=== PATIENT | female | born 1940 | race Caucasian/White ===

== ENCOUNTER 2023-08-30 13:44 | Emergency (ER) | payer OTHER ==
[~2023-08-30] VITALS: Ht 149.9 cm; Wt 61.9 kg
[2023-08-30 13:48] VITALS: O2SAT 98
[2023-08-30] MEDS: IOHEXOL-350 100 ML BOTTLE ONE (14:38)
[2023-08-30] MEDS: SODIUM CHLORIDE 0.9% 1000ML BAG (SEPSIS BOLUS) IV ONE (14:38)
[2023-08-30] MEDS: CEFTRIAXONE 1GM/50ML 50 ML IV ONE (14:48)
[2023-08-30 15:09] LABS: BASOPHILS % 0.5 % (0.0-2.0); EOSINOPHILS % 0.8 % (0.0-5.0); HEMATOCRIT. 39.5 % (36.0-48.0); HEMOGLOBIN. 13.3 g/dL (12.0-16.0); LYMPHOCYTES % 24.7 % (20.0-50.0); MEAN CORPUSCULAR HEMOGLOBIN 29.5 pg (28.0-32.0); MEAN CORPUSCULAR HGB CONC 33.6 g/dL (31.0-37.0); MEAN CORPUSCULAR VOLUME 87.7 fL (81.0-99.0); MEAN PLATELET VOLUME 9.8 fl (7.4-10.4); MONOCYTES % 6.1 % (2.0-8.0); NEUTROPHILS % 67.9 % (40.0-76.0); PLATELET 163 x1000/uL (130-400); RED BLOOD CELL COUNT 4.51 mill/uL (4.2-5.4); RED CELL DISTRIBUTION WIDTH 13.8 % (11.6-14.6); WHITE BLOOD COUNT 6.3 x1000/uL (4.5-11.0)
[2023-08-30 15:22] LABS: PROTHROMBIN TIME 11.4 sec (9.6-11.0)
[2023-08-30 15:34] LABS: LACTIC ACID 2.3 mmol/L (0.4-2.0)
[2023-08-30 15:48] LABS: ALANINE AMINOTRANSFERASE 33 IU/L (10-49); ALBUMIN 3.9 g/dL (3.2-4.8); ASPARTATE AMINOTRANSFERASE 42 IU/L (<34); BETA HYDROXYBUTYRATE 0.2 mMol/L (0.0-0.3); BILIRUBIN TOTAL 0.5 mg/dL (0.1-1.0); CALCIUM 8.9 mg/dL (8.7-10.4); CARBON DIOXIDE 30 mEq/L (21-32); CHLORIDE 96 mEq/L (98-107); CREATININE 0.8 mg/dL (0.6-1.0); POTASSIUM 4.3 mEq/L (3.5-5.1); PROTEIN TOTAL 6.3 g/dL (6.0-8.3); SODIUM 131 mEq/L (136-145); UREA NITROGEN BLOOD 9 mg/dL (9-23)
[2023-08-30 15:50] LABS: GLUCOSE 442 mg/dL (70-105); TROPONIN I HIGH SENSITIVITY < 4 ng/L (3.0-34)
[2023-08-30 15:51] LABS: ETHANOL BLOOD < 10 mg/dL (<10)
[2023-08-30] MEDS: ASPIRIN 325MG EC TABLET PO NR (15:51)
[2023-08-30] MEDS: HALOPERIDOL LACTATE 5MG/ML VIAL IM ONE (15:51)
[2023-08-30 16:16] LABS: CLARITY URINE CLEAR (CLEAR); COLOR URINE YELLOW (YELLOW); GLUCOSE URINE 3+ (NEGATIVE); KETONES URINE NEGATIVE (NEGATIVE); LEUKOCYTE ESTERASE URINE NEGATIVE (NEGATIVE); NITRITE URINE POSITIVE (NEGATIVE); OCCULT BLOOD URINE NEGATIVE (NEGATIVE); PH URINE 6.5 (4.5-8.0); PROTEIN URINE NEGATIVE (NEGATIVE); SPECIFIC GRAVITY URINE 1.045 (1.005-1.030); UROBILINOGEN URINE 0.2 E.U./dL (0.2-1.0)
[2023-08-30 16:26] LABS: *AMPHETAMINES SCREEN URINE NEGATIVE (NEGATIVE); *BARBITURATES SCREEN URINE NEGATIVE (NEGATIVE); *BENZODIAZEPINES SCREEN URINE NEGATIVE (NEGATIVE); *COCAINE SCREEN URINE NEGATIVE (NEGATIVE); CANNABINOID URINE SCREEN NEGATIVE (NEGATIVE); ECSTASY MDMA SCREEN URINE NEGATIVE (NEGATIVE); METHADONE URINE SCREEN Neg (NEGATIVE); OPIATES URINE SCREEN NEGATIVE (NEGATIVE); PHENCYCLIDINE URINE SCREEN NEGATIVE (NEGATIVE)
[2023-08-30 16:39] LABS: BACTERIA URINE 3+; RBC URINE 0-2 /hpf (0-2); SQUAMOUS EPITHELIAL CELL URINE FEW /lpf (RARE/1+)
[2023-08-30 16:40] LABS: WBC URINE 0-2 /hpf (0-2)
[2023-08-30 19:31] VITALS: BP 159/71; PULSE 89; RESP 14; TEMP 98.4
== END 2023-08-30 20:16 | disposition short-term general hospital (02) ==
LOC: ER 13:44
DX: G45.9 Transient cerebral ischemic attack, unspecified (principal); I49.9 Cardiac arrhythmia, unspecified
CPT/HCPCS: 80053; 80305; 81003; 82010; 80320; 82962; 83605; 83690; 85025; 85610; 87040; 87086; 84484; 36415; 84145; 71045; 70496; 70498; 70450; 93005; 96365; 96372; 99291; Q9967; J0696; J1630; J7030; G0480

== ENCOUNTER 2023-12-18 17:39 | Inpatient (IN) | payer OTHER, MEDICARE ==
[~2023-12-18] VITALS: Ht 160 cm; Wt 54.4 kg
[2023-12-18 18:26] LABS: BASOPHILS % 0.6 % (0.0-2.0); EOSINOPHILS % 0.4 % (0.0-5.0); HEMATOCRIT. 36.9 % (36.0-48.0); HEMOGLOBIN. 12.3 g/dL (12.0-16.0); LYMPHOCYTES % 12.5 % (20.0-50.0); MEAN CORPUSCULAR HEMOGLOBIN 29.9 pg (28.0-32.0); MEAN CORPUSCULAR HGB CONC 33.4 g/dL (31.0-37.0); MEAN CORPUSCULAR VOLUME 89.4 fL (81.0-99.0); MEAN PLATELET VOLUME 9.3 fl (7.4-10.4); MONOCYTES % 4.4 % (2.0-8.0); NEUTROPHILS % 82.1 % (40.0-76.0); PLATELET 169 x1000/uL (130-400); RED BLOOD CELL COUNT 4.13 mill/uL (4.2-5.4); RED CELL DISTRIBUTION WIDTH 14.1 % (11.6-14.6); WHITE BLOOD COUNT 9.9 x1000/uL (4.5-11.0)
[2023-12-18 18:35] LABS: CHLORIDE 98 mEq/L (98-107); POTASSIUM 4.9 mEq/L (3.5-5.1); SODIUM 133 mEq/L (136-145)
[2023-12-18 18:36] LABS: CALCIUM 9.7 mg/dL (8.7-10.4); CARBON DIOXIDE 28 mEq/L (21-32)
[2023-12-18 18:41] LABS: CREATININE 0.6 mg/dL (0.6-1.0); GLUCOSE 206 mg/dL (70-105); PROTHROMBIN TIME 10.9 sec (9.6-11.0); UREA NITROGEN BLOOD 11 mg/dL (9-23)
[2023-12-18] MEDS: ACETAMINOPHEN 325MG TABLET PO NR (18:42)
[2023-12-18] MEDS: SODIUM CHLORIDE 0.9% 1000ML BAG (SEPSIS BOLUS) IV NR (18:42)
[2023-12-18 18:53] LABS: TROPONIN I HIGH SENSITIVITY < 4 ng/L (3.0-34)
[2023-12-18 19:08] LABS: LACTIC ACID 3.5 mmol/L (0.4-2.0)
[2023-12-18] MEDS: LEVOFLOXACIN 500MG PREMIX 100 ML IV NR (21:32)
[2023-12-19 07:38] VITALS: BP 122/56; RESP 16; TEMP 97.8; O2SAT 96
[2023-12-19 12:00] VITALS: BP 152/84; RESP 20; TEMP 97.3; O2SAT 99
[2023-12-19] MEDS ORDERED: CEFEPIME 2GM IN DEXT 5% 100ML IV SCH (13:00)
[2023-12-19] MEDS: AZITHROMYCIN 500 MG TABLET PO NR (13:00)
[2023-12-19 16:00] VITALS: BP 150/60; RESP 18; TEMP 98; O2SAT 99
[2023-12-19] MEDS: CEFEPIME 2GM/100ML 100 ML IV SCH (18:15)
[2023-12-19 19:13] VITALS: BP 125/70; PULSE 80; RESP 18; TEMP 98
[2023-12-19 20:00] VITALS: BP 104/92; PULSE 92; RESP 18; TEMP 97.6
[2023-12-20] VITALS: BP 134/64; PULSE 83; RESP 18; TEMP 97.2
[2023-12-20 04:00] VITALS: BP 137/71; PULSE 78; RESP 18; TEMP 97.7
[2023-12-20 08:44] VITALS: BP 123/62; PULSE 99; RESP 18; TEMP 98
[2023-12-20] MEDS: AZITHROMYCIN 250 MG TABLET PO SCH (09:07)
[2023-12-20 12:00] VITALS: BP 131/64; PULSE 86; RESP 20; TEMP 98
[2023-12-20 18:23] VITALS: BP 144/82; PULSE 84; RESP 20; TEMP 98
== END 2023-12-20 23:10 | disposition short-term general hospital (02) | DRG 871 ==
LOC: ER 17:39 → 5WST 12-19 02:22 → EDBEDREQDT 12-19 03:00 → EDBEDREQ 12-19 03:00 → EDBEDREQTM 12-19 03:00 → 6WST 12-19 12:22
PROVIDERS: ADMIT Internal Medicine; ATTEND Internal Medicine
DX: A41.9 Sepsis, unspecified organism (principal); J12.82 Pneumonia due to coronavirus disease 2019; U07.1 COVID-19; E87.20 Acidosis, unspecified; R65.20 Severe sepsis without septic shock; E11.9 Type 2 diabetes mellitus without complications; F03.90 Unspecified dementia, unspecified severity, without behavioral disturbance, psychotic disturbance, mood disturbance, and anxiety; I10 Essential (primary) hypertension; Z86.73 Personal history of transient ischemic attack (TIA), and cerebral infarction without residual deficits; Z78.9 Other specified health status
CPT/HCPCS: 36415; 71045; 80048; 83605; 84145; 84484; 85025; 87426; 93005; 99291; J0692; J1956